=== PATIENT | male | born 1985 | race American Indian/Alaskan Native ===

== ENCOUNTER 2017-06-04 10:15 | Emergency (ER) | payer MEDICAID ==
[2017-06-04 10:15] VITALS: BMI 37.6
[2017-06-04 10:30] VITALS: RESP 20
--- NOTE | 2017-06-04 11:07 | RAD ---
HISTORY: Abdominal pain COMPARISON: Comparison chest 04/02/2016 TECHNIQUE: Chest PA and lateral FINDINGS: LUNGS: No active pulmonary disease. PLEURA: No significant pleural effusion identified. No pneumothorax apparent. CARDIOVASCULAR: Normal. OSSEOUS STRUCTURES: No significant abnormalities. VISUALIZED UPPER ABDOMEN: Normal. OTHER FINDINGS: None. IMPRESSION: No active disease.
[2017-06-04 11:32] LABS: BASO # 0.1 K/uL (0.0-0.2); BASO % 0.9 % (0.0-2.0); EOS # 0.2 K/uL (0.0-0.7); EOS % 3.5 % (0.0-4.0); LYMPH # 1.9 K/uL (1.0-4.3); LYMPH % 29.8 % (20.0-40.0); MEAN CELL VOLUME 83.4 fL (80.0-94.0); MEAN CORPUSCULAR HEMOGLOBIN 28.8 pg (27.0-31.0); MEAN CORPUSCULAR HGB CONC 34.5 g/dL (33.0-37.0); MEAN PLATELET VOLUME 11.1 fL (7.2-11.7); MONO # 0.7 K/uL (0.0-0.8); MONO % 11.6 % (0.0-10.0); NEUT # 3.4 K/uL (1.8-7.0); NEUT % 54.2 % (50.0-75.0); NRBC % 0.1 % (0.0-2.0); RBC 5.57 Mil/uL (4.40-5.90); WHITE BLOOD COUNT 6.2 K/uL (4.8-10.8)
[2017-06-04 11:40] LABS: ALBUMIN 4.2 g/dL (3.5-5.0); ALT/SGPT 32 U/L (21-72); AST/SGOT 34 U/L (17-59); BLOOD UREA NITROGEN 16 mg/dL (9-20); CALCIUM 9.4 mg/dl (8.6-10.4); GFR AFRICAN-AMERICAN > 60; GFR NON-AFRICAN AMERICAN > 60; LIPASE 306 U/L (23-300)
--- NOTE | 2017-06-04 12:06 | C.PDOC ---
History Of Present Illness 31-year-old male, presents to the emergency department with complaints of abdominal discomfort, and burning in chest x3 days. Patient states he had similar symptoms one month ago, in [place] and given Omeprazole with improvement. Patient denies nausea/vomiting, fevers or chills. Time Seen by Provider: 06/04/17 10:43 Chief Complaint (Nursing): GI Problem History Per: Patient History/Exam Limitations: no limitations Onset/Duration Of Symptoms: Days Current Symptoms Are (Timing): Still Present Severity: Moderate Past Medical History Reviewed: Historical Data, Nursing Documentation, Vital Signs Vital Signs: Last Vital Signs Temp 97.9 F 06/04/17 12:37 Pulse 63 06/04/17 12:37 Resp 20 06/04/17 12:37 BP 136/93 H 06/04/17 12:37 Pulse Ox 95 06/04/17 12:37 - Medical History PMH: Asthma (mild, not on medication), GERD - [facility] Procedures INJECT ANTIBIOTIC (02/13/13) INJECT/INFUSE NEC (02/20/13) Family History: States: CAD (Father at the age of 52 ) - Social History Hx Alcohol Use: Yes Hx Substance Use: No - Immunization History Hx Tetanus Toxoid Vaccination: No Hx Influenza Vaccination: No Hx Pneumococcal Vaccination: No Review Of Systems Constitutional: Negative for: Fever Gastrointestinal: Positive for: Abdominal Pain (Burning). Negative for: Nausea , Vomiting Physical Exam - Physical Exam Appears: Non-toxic, No Acute Distress Skin: Normal Color, Warm, Dry, No Rash Head: Normacephalic Eye(s): bilateral: PERRL Nose: Normal Oral Mucosa: Moist Lips: Normal Appearing Neck: Normal ROM Chest: Symmetrical Cardiovascular: Rhythm Regular, No Murmur Respiratory: Normal Breath Sounds, No Accessory Muscle Use Gastrointestinal/Abdominal: Soft, No Tenderness Extremity: Normal ROM, No Deformity, No Swelling Neurological/Psych: Oriented x3, Normal Speech ED Course And Treatment - Laboratory Results Result Diagrams: 06/04/17 11:24 06/04/17 11:24 ECG: Interpreted By Me, Viewed By Me ECG Rhythm: Sinus Rhythm ECG Interpretation: No Acute Changes Rate From EC O2 Sat by Pulse Oximetry: 97 (RA) Pulse Ox Interpretation: Normal Medical Decision Making Medical Decision Making: Plan: * EKG * Labs * CXR * Protonix * Reassess and Disposition Disposition Counseled Patient/Family Regarding: Studies Performed, Diagnosis, Need For Followup, Rx Given - Disposition Referrals: [facility] [Outside] Disposition: HOME/ ROUTINE Disposition Time: 12:04 Condition: STABLE Additional Instructions: follow up with clinic in 2 days call to make an appointment take medications as prescribed return to ER if symptoms worsens or progress Prescriptions: Omeprazole 20 mg PO DAILY #30 capsule. Instructions: Dyspepsia Forms: [facility] (Greenlandic), General Discharge Instructions - Clinical Impression Clinical Impression: Gastritis, Abdominal pain - Scribe Statement The provider has reviewed the documentation as recorded by the Scribe (Susan Islas) All medical record entries made by the Scribe were at my direction and personally dictated by me. I have reviewed the chart and agree that the record accurately reflects my personal performance of the history, physical exam, medical decision making, and the department course for this patient. I have also personally directed, reviewed, and agree with the discharge instructions and disposition.
[2017-06-04 12:37] VITALS: BP 136/93; PULSE 63; TEMP 97.9
[2017-06-04 13:04] VITALS: O2SAT 97
--- NOTE | 2017-06-07 08:48 | CARD ---
APPROVED REPORT EKG Measurement Heart [id number] MD [id number] <Conclusion> Normal sinus rhythm Normal ECG
== END 2017-06-04 12:37 | disposition home or self-care (01) ==
LOC: C.ER 10:15
DX: K29.70 Gastritis, unspecified, without bleeding (principal); R10.9 Unspecified abdominal pain
CPT/HCPCS: 71046; 80053; 83690; 85025; 96374; 99284; C9113

== ENCOUNTER 2017-06-27 15:37 | Emergency (ER) | payer MEDICAID ==
[2017-06-27 15:48] VITALS: BMI 38.7
[2017-06-27 15:55] VITALS: BP 131/85; PULSE 86; RESP 18; TEMP 97.9; O2SAT 97
[2017-06-27] MEDS ORDERED: Alum-Mag Hydrox-Simethicone Susp (30 mL) PO STA (17:34)
--- NOTE | 2017-06-27 17:53 | C.PDOC ---
History Of Present Illness 31 year old male presents to the ED complaining of a burning chest pain, occurring on and off for the past 2 weeks. Symptoms are associated with increased gas, nausea, and belching, which relieves his pain. Pain is described as pressure-like. Patient was seen here 2 weeks ago and prescribed Omeprazole which he has been taking without improvement. Today the pain seemed worse and patient began feeling weak, prompting him to return to the ED. He denies any vomiting, headaches, shortness of breath, palpitations, dizziness, or visual changes. Also denies recent alcohol use. Time Seen by Provider: 06/27/17 17:13 Chief Complaint (Nursing): Chest Pain History Per: Patient History/Exam Limitations: no limitations Onset/Duration Of Symptoms: Days Current Symptoms Are (Timing): Still Present Past Medical History Reviewed: Historical Data, Nursing Documentation, Vital Signs Vital Signs: Last Vital Signs Temp 97.9 F 06/27/17 15:49 Pulse 86 06/27/17 15:49 Resp 18 06/27/17 15:49 BP 131/85 06/27/17 15:49 Pulse Ox 97 06/27/17 18:23 - Medical History PMH: Asthma (mild, not on medication), GERD Other Surgeries: Left knee surgery - [employer] Procedures INJECT ANTIBIOTIC (02/13/13) INJECT/INFUSE NEC (02/20/13) Family History: States: CAD (Father at the age of 52 ) - Social History Hx Alcohol Use: Yes Hx Substance Use: No - Immunization History Hx Tetanus Toxoid Vaccination: No Hx Influenza Vaccination: No Hx Pneumococcal Vaccination: No Review Of Systems Except As Marked, All Systems Reviewed And Found Negative. Constitutional: Positive for: Weakness (generalized). Negative for: Fever, Sweats Eyes: Negative for: Vision Change Cardiovascular: Positive for: Chest Pain Respiratory: Negative for: Shortness of Breath Gastrointestinal: Positive for: Nausea, Other (reflux-like burning and belching) . Negative for: Vomiting, Abdominal Pain, Diarrhea Neurological: Negative for: Headache, Dizziness Physical Exam - Physical Exam Appears: Non-toxic, No Acute Distress Skin: Normal Color, Warm, Dry Head: Atraumatic, Normacephalic Eye(s): bilateral: Normal Inspection, PERRL, EOMI Nose: Normal Oral Mucosa: Moist Neck: Normal ROM, Supple Chest: Symmetrical, No Tenderness Cardiovascular: Rhythm Regular, No Murmur Respiratory: Normal Breath Sounds, No Accessory Muscle Use, No Rales, No Rhonchi , No Wheezing Gastrointestinal/Abdominal: Soft, No Tenderness, No Distention Extremity: Bilateral: Atraumatic, Normal Color And Temperature, Normal ROM Pulses: Left Radial: Normal, Right Radial: Normal Neurological/Psych: Oriented x3, Normal Speech ED Course And Treatment ECG: Interpreted By Me, Viewed By Me (and ED attending) ECG Rhythm: Sinus Rhythm ECG Interpretation: No Acute Changes Rate From EC O2 Sat by Pulse Oximetry: 97 (RA) Pulse Ox Interpretation: Normal Medical Decision Making Medical Decision Making: Old records reviewed, the patient has had multiple visits for chest pain in the past. Labs, CXR, and EKG from prior are all normal. Time: 16:02 Initial Plan: --EKG --X-ray obstructive series --Pepcid 20 mg PO --Maalox 30 ml PO EKG is normal. X-ray demonstrates stool gas pattern, no obstruction or free air. Patient informed of diagnostic findings. Patient is stable for d/c home and has low risk of ACS at this time. Provided with prescriptions for Maalox, Motrin, and Miralax. Advised to follow up with PMD in 1-2 days Disposition Counseled Patient/Family Regarding: Studies Performed, Diagnosis, Need For Followup, Rx Given - Disposition Referrals: Angel Cardona MD [Staff Provider] - Disposition: HOME/ ROUTINE Disposition Time: 18:14 Condition: STABLE Additional Instructions: Follow up with the medical doctor within 1-2 days. Return if worsend. 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 - Scribe Statement The provider has reviewed the documentation as recorded by the Scribe (Carolyn Meléndez) All medical record entries made by the Scribe were at my direction and personally dictated by me. I have reviewed the chart and agree that the record accurately reflects my personal performance of the history, physical exam, medical decision making, and the department course for this patient. I have also personally directed, reviewed, and agree with the discharge instructions and disposition.
[2017-06-27] MEDS ORDERED: Aluminum Hydroxide/Magnesium Hydroxide Susp (30 mL) ONE (18:12)
--- NOTE | 2017-06-27 18:33 | RAD ---
PROCEDURE: Radiographs of the chest and abdomen (obstructive series) HISTORY: abd pain, chest pain All abdominal pain, chest pain. COMPARISON: No prior. TECHNIQUE: AP radiograph of the chest, with upright and supine radiographs of the abdomen. FINDINGS: CHEST: Lungs: Clear. Cardiovascular: Normal size heart. No pulmonary vascular congestion. Pleura: No pleural fluid. No pneumothorax. Other findings: None. ABDOMEN AND PELVIS: Bowel: Unremarkable bowel gas pattern. No evidence of mechanical obstruction. Free air: None. Bones: Unremarkable. Other findings: None. IMPRESSION: Unremarkable radiographs of chest and abdomen. No evidence of mechanical bowel obstruction.
--- NOTE | 2017-06-28 13:28 | CARD ---
APPROVED REPORT EKG Measurement Heart [id number] TN [id number] <Conclusion> Normal sinus rhythm Normal ECG
== END 2017-06-27 18:55 | disposition home or self-care (01) ==
LOC: C.ER 15:37
DX: R10.13 Epigastric pain (principal); R07.9 Chest pain, unspecified

== ENCOUNTER 2018-01-24 15:27 | Emergency (ER) | payer MEDICAID ==
[2018-01-24 15:27] VITALS: BMI 38.7
[2018-01-24 15:40] VITALS: RESP 16
--- NOTE | 2018-01-24 16:13 | C.PDOC ---
History Of Present Illness 32 y/o male presents to the ED complaining of supraubic pain, dysuria, frequency, and low back pain for 2 days. No fever. Symptoms are unchanged with movement. Otherwise patient denies any fever, chills, nausea, vomiting, penile discharge, or rash. Time Seen by Provider: 01/24/18 15:42 Chief Complaint (Nursing): Male Genitourinary History Per: Patient History/Exam Limitations: no limitations Onset/Duration Of Symptoms: Days Current Symptoms Are (Timing): Still Present Associated Symptoms: Urinary Symptoms Past Medical History Reviewed: Historical Data, Nursing Documentation, Vital Signs Vital Signs: Last Vital Signs Temp 98.2 F 01/24/18 15:37 Pulse 89 01/24/18 15:37 Resp 16 01/24/18 15:37 BP 143/93 H 01/24/18 15:37 Pulse Ox 97 01/24/18 15:37 - Medical History PMH: Asthma (mild, not on medication), GERD - [facility] Procedures INJECT ANTIBIOTIC (02/13/13) INJECT/INFUSE NEC (02/20/13) Family History: States: CAD (Father at the age of 52 ) - Social History Hx Alcohol Use: Yes Hx Substance Use: No - Immunization History Hx Tetanus Toxoid Vaccination: No Hx Influenza Vaccination: No Hx Pneumococcal Vaccination: No Review Of Systems Except As Marked, All Systems Reviewed And Found Negative. Constitutional: Negative for: Fever, Chills Cardiovascular: Negative for: Chest Pain Respiratory: Negative for: Shortness of Breath Gastrointestinal: Positive for: Abdominal Pain (lower). Negative for: Nausea, Vomiting Genitourinary: Positive for: Dysuria, Frequency. Negative for: Penile Discharge, Scrotal Pain, Rash Musculoskeletal: Positive for: Back Pain (low) Neurological: Negative for: Weakness, Numbness, Incoordination Physical Exam - Physical Exam Appears: Non-toxic, No Acute Distress Skin: Normal Color, Warm, Dry Head: Atraumatic, Normacephalic Eye(s): bilateral: Normal Inspection, PERRL, EOMI Oral Mucosa: Moist Neck: Normal ROM Chest: Symmetrical Cardiovascular: Rhythm Regular, No Murmur Respiratory: Normal Breath Sounds, No Accessory Muscle Use, Other (NARD) Gastrointestinal/Abdominal: Soft, No Tenderness, No Distention, No Guarding, No Rebound Back: No CVA Tenderness, No Vertebral Tenderness Extremity: Bilateral: Atraumatic, Normal Color And Temperature, Normal ROM Pulses: Left Dorsalis Pedis: Normal, Right Dorsalis Pedis: Normal Neurological/Psych: Oriented x3, Normal Speech, Other (No focal deficits) ED Course And Treatment O2 Sat by Pulse Oximetry: 97 (RA) Pulse Ox Interpretation: Normal Progress - Re-Evaluation Re-evaluation Note: 01/24/18 16:40 +RLQ/GROIN TEND. PSH NEG. UA NEG. S/O DR MARCIN MEDRANO LABS, CT RO APPY - Data Reviewed Data Reviewed: Lab, Diagnostic imaging, EKG, Old records Medical Decision Making Medical Decision Making: Impression: Dysuria, Frequency, Suprapubic and low back pain Plan: - Urinalysis - Urine culture Disposition - Disposition Disposition Time: 16:41 Condition: STABLE Forms: [facility] (South African) - Clinical Impression Clinical Impression: Abdominal pain - Scribe Statement The provider has reviewed the documentation as recorded by the Trentiblilliana Meléndez Provider Attestation: All medical record entries made by the Trentibe were at my direction and personally dictated by me. I have reviewed the chart and agree that the record accurately reflects my personal performance of the history, physical exam, medical decision making, and the department course for this patient. I have also personally directed, reviewed, and agree with the discharge instructions and disposition. Physician Patient Turnover Patient Signed Over To: Yoan Lopes Handoff Comments: [facility] CT, LABS, DISPO
[2018-01-24 16:16] LABS: URINE BILIRUBIN NEGATIVE (NEGATIVE); URINE BLOOD NEGATIVE (NEGATIVE); URINE CLARITY Clear (Clear); URINE COLOR Yellow (YELLOW); URINE GLUCOSE (UA) NORMAL (Normal); URINE LEUKOCYTE ESTERASE NEG Leu/uL (Negative); URINE PROTEIN NEGATIVE (NEGATIVE); URINE UROBILINOGEN NORMAL mg/dL (0.2-1.0)
[2018-01-24 17:14] LABS: BASO # 0.1 K/uL (0.0-0.2); BASO % 0.9 % (0.0-2.0); EOS # 0.3 K/uL (0.0-0.7); EOS % 3.3 % (0.0-4.0); HEMOGLOBIN 15.4 g/dL (12.0-18.0); LYMPH # 2.8 K/uL (1.0-4.3); LYMPH % 32.9 % (20.0-40.0); MEAN CELL VOLUME 82.4 fL (80.0-94.0); MEAN CORPUSCULAR HEMOGLOBIN 28.1 pg (27.0-31.0); MEAN CORPUSCULAR HGB CONC 34.1 g/dL (33.0-37.0); MEAN PLATELET VOLUME 11.1 fL (7.2-11.7); MONO # 1.2 K/uL (0.0-0.8); MONO % 13.5 % (0.0-10.0); NEUT # 4.2 K/uL (1.8-7.0); NEUT % 49.4 % (50.0-75.0); NRBC % 0.1 % (0.0-2.0); RBC 5.47 Mil/uL (4.40-5.90); WHITE BLOOD COUNT 8.6 K/uL (4.8-10.8)
[2018-01-24 17:35] LABS: ALB/GLOB RATIO 1.2 (1.0-2.1); ALBUMIN 4.3 g/dL (3.5-5.0); ALT/SGPT 37 U/L (21-72); AST/SGOT 36 U/L (17-59); BLOOD UREA NITROGEN 19 mg/dL (9-20); CALCIUM 9.2 mg/dl (8.6-10.4); GFR NON-AFRICAN AMERICAN > 60; LIPASE 286 U/L (23-300)
--- NOTE | 2018-01-24 17:53 | C.PDOC ---
Time Seen by Provider: 01/24/18 15:42 Chief Complaint (Nursing): Male Genitourinary Past Medical History Vital Signs: Last Vital Signs Temp 98.2 F 01/24/18 15:37 Pulse 89 01/24/18 15:37 Resp 16 01/24/18 15:37 BP 143/93 H 01/24/18 15:37 Pulse Ox 97 01/24/18 16:41 - Medical History PMH: Asthma (mild, not on medication), GERD - [facility] Procedures INJECT ANTIBIOTIC (02/13/13) INJECT/INFUSE NEC (02/20/13) Family History: States: CAD (Father at the age of 52 ) - Social History Hx Alcohol Use: Yes Hx Substance Use: No - Immunization History Hx Tetanus Toxoid Vaccination: No Hx Influenza Vaccination: No Hx Pneumococcal Vaccination: No ED Course And Treatment - Laboratory Results Result Diagrams: 01/24/18 17:10 01/24/18 17:10 O2 Sat by Pulse Oximetry: 97 (RA) - Radiology CXR: Read By Radiologist - CT Scan/US CT abd/pel Other Rad Studies (CT/US): Read By Radiologist, Radiology Report Reviewed CT/US Interpretation: EXAM: CT Abdomen with IV contrast. CLINICAL HISTORY: RLQ PAIN. TECHNIQUE: Axial computed tomography images of the abdomen and pelvis with intravenous contrast. 0.00 mGy-cm. CONTRAST: With; VISI 100 MLS. COMPARISON: None provided. FINDINGS: LUNG BASES: The lung bases appear clear. No pleural effusions are seen. LIVER: Fatty infiltration of the liver. GALLBLADDER AND BILE DUCTS: The gallbladder appears within normal limits. No radioopaque gallstones are seen. No biliary ductal dilatation is evident. PANCREAS: Unremarkable. SPLEEN: Unremarkable. ADRENAL GLANDS: Unremarkable. KIDNEYS, URETERS, AND BLADDER: The kidneys appear within normal limits. There is no hydronephrosis or hydroureter. No urinary calculi are seen. STOMACH AND BOWEL: Unremarkable appearance of the stomach and bowel. No evidence of bowel obstruction. No evidence suggesting enteritis or colitis. APPENDIX: No evidence of acute appendicitis on CT examination. PERITONEUM: No free fluid. No free air. LYMPH NODES: No lymphadenopathy is evident. VASCULATURE: No evidence of abdominal aortic aneurysm. BONES: No aggressive appearing osseous lesion. No acute osseous pathology evident. IMPRESSION: Fatty infiltration of the liver. No suspicious mass or lymphadenopathy or free fluid collection. . Electronically signed on Jan 24, 2018 7:25:20 PM EST by: Patrick Vaca M.D., Certified by [facility]BR, Diagnostic Radiology. Disposition Counseled Patient/Family Regarding: Studies Performed, Diagnosis, Need For Followup, Rx Given (and weight loss) - Disposition Referrals: [facility] [Outside] Disposition: HOME/ ROUTINE Disposition Time: 19:59 Condition: STABLE Additional Instructions: Follow up with a primary care doctor for further evaluation. JARED BARTHOLOMEW, thank you for letting us take care of you today. Your provider was Dr.Lamont Lopes and you were treated for radiculopathy. The emergency medical care you received today was directed at your acute symptoms. If you were prescribed any medication, please fill it and take as directed. It may take several days for your symptoms to resolve. Return to the Emergency Department if your symptoms worsen, do not improve, or if you have any other problems. Please contact your doctor or call one of the physicians/clinics you have been referred to that are listed on the Patient Visit Information form that is included in your discharge packet. Bring any paperwork you were given at [facility] with you along with any medications you are taking to your follow up visit. Our treatment cannot replace ongoing medical care by a primary care provider outside of the emergency department. Thank you for allowing the [facility] team to be part of your care today. If you had an X-Ray or CT scan: A Radiologist will review the ED reading if any change in treatment is needed we will contact you. If you had a blood, urine, or wound culture: It will take several days for the results, if any change in treatment is needed we will contact you. If you had an STI test: It will take 48 hours for the results. Please call after 1 week if you have not heard back. Prescriptions: RX: Ibuprofen [Motrin Tab] 600 mg PO QID #42 tab Instructions: Radiculopathy (DC) Forms: [facility] (Cuban) - Clinical Impression Clinical Impression: Radiculopathy of lumbosacral region Addendum Addendum: case endorsed to me from Dr. Denny from [facility] with concern for appendicitis and pending CT. I have personally seen and examined the patient at bedside, vitals and labs reviewed by myself. Patient states that he has low back pain and bilateral pubic pain. patient has a physically demanding job, intermittently gets exacerbations of low back pain while at work without neuro deficits. patient states he recently noticed the pain while having sexual relations. patient states the low back pain sometimes radiates into his thighs, buttock. Gen: alert, well developed, well nourished, nontoxic, mild distress CV: regular rate, regular rhythm, no rubs,no murmur, S1, S2 Pulm: no distress, clear to auscultation, no wheeze, no rhonchi, breath sounds equal, no rales Abd: soft, nontender, no guarding, no rebound, no rigidity Genital: normal genital exam including testicular exam Ext: no edema Skin: good color, no rash, no cyanosis Psych: responds appropriately to questions, normal affect Neuro: oriented x3, CN2-12 intact grossly, motor intact, sensation intact Impression/Plan: Lumbosacral Radiculopathy. Supportive, weight loss, nsaids, possible eventual MRI L-spine but not indicated at this time. Refer to PCP. rule out appendicitsi 01/24/18 17:43 01/24/18 17:53 01/24/18 20:31 patient was discharged in stable condition, was counseled on necessity for follow up and possible eventual testing for low back pain
[2018-01-24] MEDS ORDERED: Iodixanol 320 MG/ML 100 ML BOTTLE IV ONE (18:48)
[2018-01-24 19:33] VITALS: BP 136/89; PULSE 93; TEMP 98.4
[2018-01-24 20:00] VITALS: O2SAT 97
--- NOTE | 2018-01-25 10:51 | CT ---
Date of service: 01/24/2018 PROCEDURE: CT Abdomen and Pelvis with contrast HISTORY: Abdominal pain this the RLQ COMPARISON: None. TECHNIQUE: Contrast dose: Radiation dose: Total exam DLP = 1207.07 mGy-cm. This CT exam was performed using one or more of the following dose reduction techniques: Automated exposure control, adjustment of the mA and/or kV according to patient size, and/or use of iterative reconstruction technique. FINDINGS: LOWER THORAX: Heart size is within range of normal. No significant pericardial effusion. There is a small hiatal hernia. Lung bases clear with no effusion or basilar pneumothorax. Small hiatal hernia. LIVER: Liver is enlarged measuring nearly 20 cm in CC dimension. Moderate diffuse fatty hepatic infiltration. There is a small approximately 15.6 mm somewhat elliptical shaped has been lesion inferior tip right lobe liver that probably represents a small hemangioma. Follow-up non. The emergent ultrasound may be helpful for further evaluation. Alternatively, nonemergent triple phase CT scan of the liver could be obtained. Portal and splenic veins are opacified. GALLBLADDER AND BILE DUCTS: Gallbladder physiologically distended. No evidence of intraluminal gallbladder calculi. PANCREAS: The pancreas appears slightly atrophic and fatty replaced. There are no pancreatic masses or collections.. SPLEEN: Spleen is upper limits of normal in size. No splenic mass collection or calcification.. ADRENALS: No adrenal lesions. KIDNEYS AND URETERS: Kidneys demonstrate symmetric size and nephrograms. No evidence of nephrolithiasis hydronephrosis.. VASCULATURE: Unremarkable. No aortic aneurysm. No aortic atherosclerotic calcification or mural plaque present. BOWEL: Evaluation of the bowel is limited due to the lack of oral contrast material. Stomach is incompletely distended. Visualized loops of small bowel exhibit normal contour and caliber. No evidence of acute small bowel obstruction. Stool and air seen throughout the large bowel.. APPENDIX: Normal appendix. PERITONEUM: Unremarkable. No free fluid. No free air. Small fat containing umbilical hernia. LYMPH NODES: Unremarkable. No enlarged lymph nodes. BLADDER: Urinary bladder incompletely distended which in part accounts for slight thick-walled appearance.. REPRODUCTIVE: Unremarkable as visualized.. BONES: No acute fracture. OTHER FINDINGS: None. IMPRESSION: Mild hepatomegaly with fatty infiltration. Probable small hemangioma inferior tip right lobe liver for which nonemergent ultrasound or triple phase CT scan of the liver could be performed for further evaluation if necessary. The note this study was placed in PA review folder for follow up.
== END 2018-01-24 20:14 | disposition home or self-care (01) ==
LOC: C.ER 15:27
DX: R10.30 Lower abdominal pain, unspecified (principal); M54.17 Radiculopathy, lumbosacral region
CPT/HCPCS: 74177; 80053; 81001; 83690; 85025; 87086; 99285; Q9967